=== PATIENT | female | born 1965 | race Caucasian/White ===

== ENCOUNTER 2020-07-22 14:17 | Emergency (ER) | payer BC, OTHER ==
[2020-07-22 14:24] VITALS: BMI 42.9
[2020-07-22] MEDS ORDERED: CYCLOBENZAPRINE HCL 5 MG TABLET PO ONE (14:47)
[2020-07-22] MEDS ORDERED: LIDOCAINE 5% TOPICAL PATCH TP ONE (14:48)
[2020-07-22] MEDS ORDERED: LIDOCAINE 5% TOPICAL PATCH ONE (15:12)
[2020-07-22] MEDS ORDERED: CYCLOBENZAPRINE HCL 10 MG TABLET (FP) ONE (15:12)
[2020-07-22 15:55] LABS: CALCIUM OXALATE CRYSTALS MODERATE /hpf (NONE SEEN); EPITHELIAL CELLS MANY /hpf
[2020-07-22 16:23] LABS: BASO % 2.4 % (0-2.0); EOS % 2.9 % (0-4.5); HEMATOCRIT 39.2 % (32.4-45.2); HEMOGLOBIN 13.1 GM/dl (10.7-15.3); LYMPH % 34.4 % (8-40); MCH 29.7 pg (25.7-33.7); MCHC 33.4 g/dl (32.0-36.0); MEAN CELL VOLUME 88.8 fl (80-96); MEAN PLT VOLUME 9.2 fl (7.5-11.1); MONO % 9.2 % (3.8-10.2); NEUT % 51.1 % (42.8-82.8); PLATELET COUNT 240 K/MM3 (134-434); RBC 4.41 M/mm3 (3.60-5.2); RDW 13.8 % (11.6-15.6)
[2020-07-22 16:44] LABS: ALBUMIN 4.2 g/dl (3.4-5.0); ALK PHOS 92 U/L (45-117); ANION GAP 8 MMOL/L (8-16); BILIRUBIN,TOTAL 0.4 mg/dl (0.2-1); CALCIUM 9.5 mg/dl (8.5-10); CHLORIDE 103 mmol/L (98-107); CO2 28 mmol/L (21-32); CREATININE 0.9 mg/dl (0.55-1.3); GLUCOSE,RANDOM 86 mg/dl (74-106); SGOT/AST 14 U/L (15-37); SGPT/ALT 13 U/L (13-61); SODIUM 139 mmol/L (136-145); TOT PROT 7.4 g/dl (6.4-8.2)
[2020-07-22] MEDS ORDERED: NITROFURANTOIN MACROCRYSTAL 50 MG CAPSULE (FP) PO SCH (16:45)
[2020-07-22] MEDS ORDERED: KETOROLAC TROMETHAMINE 30 MG/1 ML VIAL IM ONE (16:58)
[2020-07-22] MEDS ORDERED: METOCLOPRAMIDE HCL 10 MG TABLET (FP) PO ONE ×2 (16:58→17:27)
[2020-07-22] MEDS ORDERED: NITROFURANTOIN MACROCRYSTAL 50 MG CAPSULE (FP) ONE (17:28)
[2020-07-22] MEDS ORDERED: KETOROLAC TROMETHAMINE 30 MG/1 ML VIAL ONE (17:28)
[2020-07-22 17:38] VITALS: BP 123/61; PULSE 65; TEMP 97.7
== END 2020-07-22 19:04 | disposition home or self-care (01) ==
LOC: FER 14:17
PROC: 3E0233Z Introduction of Anti-inflammatory into Muscle, Percutaneous Approach (ICD-10-PCS; principal; 2020-07-22)
DX: N39.0 Urinary tract infection, site not specified (principal); M54.2 Cervicalgia; M54.5 Low back pain
CPT/HCPCS: 36415; 70450-TC; 71045-TC-FY; 80053; 81003; 81015; 82550; 84484; 85025; 87086; 93005; 99285-25

== ENCOUNTER 2023-02-27 21:58 | Emergency (ER) | payer OTHER ==
[2023-02-27] MEDS ORDERED: CLINDAMYCIN IVPB 300 MG in DEXTROSE 5%-WATER - 48 ML IVPB ONE (22:14)
[2023-02-27 22:32] VITALS: BP 138/77; PULSE 86; RESP 18; TEMP 98.2; BMI 42.9
[2023-02-27] MEDS ORDERED: CLINDAMYCIN 600MG PREMIX IVPB 600 MG/50 ML BAG IVPB ONE ×2 (22:33→22:34)
== END 2023-02-27 23:17 | disposition home or self-care (01) ==
LOC: FER 21:58
DX: S61.451D Open bite of right hand, subsequent encounter (principal); M79.641 Pain in right hand; M79.89 Other specified soft tissue disorders; L03.113 Cellulitis of right upper limb; W54.0XXD Bitten by dog, subsequent encounter; Y93.9 Activity, unspecified; Y92.9 Unspecified place or not applicable
CPT/HCPCS: 99284-25

== ENCOUNTER 2023-07-22 19:44 | Observation (INO) | payer OTHER ==
[2023-07-22] MEDS ORDERED: ACETAMINOPHEN INJECTION 100 ML IVPB ONE (21:06)
[2023-07-22] MEDS ORDERED: FAMOTIDINE 20 MG/50 ML IVPB 20 MG/50 ML MG IVPB ONE (21:06)
[2023-07-22] MEDS: FAMOTIDINE 20 MG/50 ML IVPB 20 MG/50 ML MG IVPB ONE (21:17)
[2023-07-22] MEDS: SODIUM CHLORIDE 1,000 ML IV ONE (21:17)
[2023-07-22 21:33] LABS: HEMATOCRIT 40.5 % (32.4-45.2); HEMOGLOBIN 13.2 G/dL (10.7-15.3); MCH 28.8 pg (25.7-33.7); MCHC 32.6 g/dl (32.0-36.0); MEAN CELL VOLUME 88.5 fl (80-96); MEAN PLT VOLUME 8.5 fl (7.5-11.1); PLATELET COUNT 229.9 10^3/uL (134-434); RBC 4.58 10^6/uL (3.60-5.2); RDW 15.2 % (11.6-15.6); WHITE BLOOD COUNT 4.7 10^3/uL (4.0-10.8)
[2023-07-22 21:49] LABS: ALBUMIN 4.2 g/dl (3.4-5.0); BILIRUBIN,TOTAL 0.5 mg/dl (0.2-1); CALCIUM 9.2 mg/dl (8.5-10.1); CREATININE 0.8 mg/dl (0.6-1.3)
[2023-07-22] MEDS: ACETAMINOPHEN 1000 MG/100 ML BAG IVPB ONE (21:57)
[2023-07-22] MEDS ORDERED: ASPIRIN 81 MG CHEWABLE TABLETS ONE (22:50)
[2023-07-22] MEDS: ASPIRIN 81 MG CHEWABLE TABLETS PO ONE (22:52)
[2023-07-22] MEDS ORDERED: HYDROmorphone HCL/PF 1 MG/ML VIAL ONE (23:43)
[2023-07-22] MEDS: HYDROmorphone HCl 2 MG/ML VIAL IVPUSH STA (23:49)
[2023-07-23 00:53] VITALS: BMI 48.4
[2023-07-23 08:31] LABS: HEMATOCRIT 37.6 % (32.4-45.2); HEMOGLOBIN 11.9 G/dL (10.7-15.3); MCH 28.2 pg (25.7-33.7); MCHC 31.6 g/dl (32.0-36.0); MEAN CELL VOLUME 89.1 fl (80-96); MEAN PLT VOLUME 9.1 fl (7.5-11.1); PLATELET COUNT 201.7 10^3/uL (134-434); RBC 4.22 10^6/uL (3.60-5.2); RDW 15.2 % (11.6-15.6); WHITE BLOOD COUNT 3.3 10^3/uL (4.0-10.8)
[2023-07-23 08:54] LABS: CALCIUM 8.7 mg/dl (8.5-10.1); CREATININE 0.7 mg/dl (0.6-1.3); POTASSIUM 3.9 mmol/L (3.5-5.1)
[2023-07-23] MEDS: PANTOPRAZOLE 40 MG TABLET PO SCH (09:59)
[2023-07-23] MEDS: ASPIRIN 81 MG CHEWABLE TABLETS PO SCH (09:59)
[2023-07-23 11:21] LABS: PLATELET ESTIMATE ADEQUATE
[2023-07-23] MEDS: ACETAMINOPHEN 1000 MG/100 ML BAG IVPB PRN (22:32)
[2023-07-24 08:28] LABS: ACTIVATED PTT 31.2 SECONDS (25.2-36.5); INR 1.08 (0.83-1.09); PROTHROMBIN TIME (PATIENT) 12.5 SEC (9.7-13.0)
[2023-07-24 09:37] LABS: ALBUMIN 3.8 g/dl (3.4-5.0); BILIRUBIN,TOTAL 0.2 mg/dl (0.2-1); CALCIUM 9.5 mg/dl (8.5-10.1); CREATININE 0.7 mg/dl (0.6-1.3); PHOSPHOROUS 3.6 (2.5-4.9); POTASSIUM 3.9 mmol/L (3.5-5.1); TOT PROT 6.4 g/dl (6.4-8.2)
[2023-07-24 10:09] LABS: BASO % 0.5 % (0-2.0); EOS % 4.5 % (0-4.5); HEMATOCRIT 38.5 % (32.4-45.2); HEMOGLOBIN 12.3 GM/dL (10.7-15.3); LYMPH % 46.5 % (8-40); MCH 28.3 pg (25.7-33.7); MEAN CELL VOLUME 88.4 fl (80-96); MEAN PLT VOLUME 8.6 fl (7.5-11.1); MONO % 12.9 % (3.8-10.2); NEUT % 35.6 % (42.8-82.8); PLATELET COUNT 244 10^3/uL (134-434); RBC 4.36 M/mm3 (3.60-5.2); RDW 15.4 % (11.6-15.6)
[2023-07-24 22:54] VITALS: RESP 17
[2023-07-25 10:19] VITALS: BP 128/66; PULSE 64; TEMP 97.6
== END 2023-07-25 12:53 | disposition home or self-care (01) ==
LOC: FER 19:44 → FM/S 23:56
PROVIDERS: ADMIT Internal Medicine
PROC: 3E033NZ Introduction of Analgesics, Hypnotics, Sedatives into Peripheral Vein, Percutaneous Approach (ICD-10-PCS; principal; 2023-07-22)
PROC: 3E033GC Introduction of Other Therapeutic Substance into Peripheral Vein, Percutaneous Approach (ICD-10-PCS; 2023-07-22)
PROC: 3E0337Z Introduction of Electrolytic and Water Balance Substance into Peripheral Vein, Percutaneous Approach (ICD-10-PCS; 2023-07-22)
DX: K52.9 Noninfective gastroenteritis and colitis, unspecified (principal); R77.8 Other specified abnormalities of plasma proteins; J45.909 Unspecified asthma, uncomplicated; E66.01 Morbid (severe) obesity due to excess calories; G89.29 Other chronic pain; M54.59 Other low back pain; Z98.84 Bariatric surgery status; D72.819 Decreased white blood cell count, unspecified; R10.13 Epigastric pain; Z87.891 Personal history of nicotine dependence; Z88.0 Allergy status to penicillin; Z91.018 Allergy to other foods
CPT/HCPCS: 0241U-QW; 36415; 71045-TC-FY; 74177-TC; 80048; 80053; 80061; 82550; 83690; 83735; 84100; 84484; 85025; 85027; 85610; 85730; 93005; 93306-TC; 99285-25; G0378; J0131; Q9967

== ENCOUNTER 2024-12-06 21:27 | Emergency (ER) | payer OTHER ==
[2024-12-06 21:43] VITALS: BP 142/78; PULSE 76; RESP 18; TEMP 98.2; BMI 46.3
[2024-12-06] MEDS ORDERED: KETOROLAC TROMETHAMINE 30 MG/1 ML VIAL ONE (22:24)
[2024-12-06] MEDS ORDERED: ASPIRIN 81 MG CHEWABLE TABLETS ONE (22:24)
[2024-12-06] MEDS: KETOROLAC TROMETHAMINE 30 MG/1 ML VIAL IVPUSH ONE (22:26)
[2024-12-06] MEDS: ASPIRIN 81 MG CHEWABLE TABLETS PO ONE (22:26)
[2024-12-06 22:34] LABS: ABSOLUTE IMMATURE GRANULOCYTES 0.02 x10^3/uL (0.0-0.031); BASOPHILS # 0.04 x10^3/uL (0.01-0.08); EOSINOPHIL % 1.8 % (0.7-5.8); EOSINOPHILS # 0.14 x10^3/uL (0.04-0.36); MCHC 31.1 g/dl (32.2-35.5); MEAN CELL VOLUME 91.2 fl (79.4-94.8); MEAN PLT VOLUME 9.8 fl (9.4-12.3); MONOCYTE # 0.57 x10^3/uL (0.24-0.86); MONOCYTE % 7.2 % (4.7-12.5); RDW 14.9 % (12.3-16.6)
[2024-12-06 22:51] LABS: ALK PHOS 98.0 U/L (45-117); CO2 32.0 mmol/L (21-32); CREATININE 1.0 mg/dl (0.6-1.3); GLUCOSE,RANDOM 94.0 mg/dl (74-106); SGOT/AST 13.0 U/L (15-37); SGPT/ALT 11.0 U/L (7-52); TOT PROT 7.0 g/dl (6.4-8.2)
[2024-12-07 01:21] LABS: HCV DIAGNOSTIC IN-HOUSE W/RFLX NON-REACTIVE (NONREACTIVE); HIV INTERPRETATION NEGATIVE (NEGATIVE)
== END 2024-12-07 02:25 | disposition home or self-care (01) ==
LOC: FER 21:27
PROC: 3E0333Z Introduction of Anti-inflammatory into Peripheral Vein, Percutaneous Approach (ICD-10-PCS; principal; 2024-12-06)
DX: R07.89 Other chest pain (principal); R53.83 Other fatigue; R06.02 Shortness of breath
CPT/HCPCS: 36415; 71045-TC-FY; 80053; 82550; 84484; 85025; 85379; 86803; 87389; 99285-25